=== PATIENT | female | born 1950 | race Caucasian/White ===

== ENCOUNTER 2018-01-17 21:36 | Inpatient (IN) | payer OTHER ==
[~2018-01-17] VITALS: Ht 160 cm; Wt 78.5 kg
[~2018-01-17 21:36] MED LIST: ARTHROTEC 501 TABLET PO; FIORICET,ESG1 TABLET PO; FISH OIL500 MG PO; FOLIC ACID1 MG PO; GABAPENTIN100 MG PO; LOPRESSOR50 MG PO; MECLIZINE HCL25 MG PO; METHOTREXA25 MG/1 M5 IV
[2018-01-17 22:29] LABS: HEMATOCRIT 37.4 % (36.0-46.0); HEMOGLOBIN 12.4 G/DL (11.9-15.5); MCH 31.7 PG (29.0-34.0); MCHC 33.2 G/DL (30.0-36.0); MCV 95.7 FL (83-99); PLATELET COUNT 417 K/uL (156-360); RBC DIS.WIDTH-CV 13.6 % (11.8-14.6); RBC DIS.WIDTH-SD 47.8 % (39-53); RED BLOOD COUNT 3.91 M/uL (3.80-5.20); WHITE BLOOD COUNT 12.4 K/uL (4.1-10.2)
[2018-01-17 22:47] LABS: ALBUMIN 3.9 g/dL (3.2-4.8)
[2018-01-17 22:48] LABS: CHLORIDE 111 mEq/L (99-109); POTASSIUM 4.7 mEq/L (3.7-5.4); SODIUM 142 mEq/L (136-147)
[2018-01-17 22:50] LABS: GLUCOSE 114 mg/dL (70-99)
[2018-01-17 22:52] LABS: TOTAL BILIRUBIN 1.2 mg/dL (0.0-1.0)
[2018-01-17 22:53] LABS: ALKALINE PHOSPHATASE 345 IU/L (3-129)
[2018-01-17 22:54] LABS: CREATININE 0.7 mg/dL (0.6-1.3); GFR ESTIMATE (CALCULATED) > 59 mL/min/
[2018-01-17 22:55] LABS: AST (GOT) 394 IU/L (2-34); UREA NITROGEN (BUN) 24 mg/dL (9-23)
[2018-01-17 22:56] LABS: ALT (GPT) 275 IU/L (3-49)
[2018-01-17 23:18] LABS: LIPASE 1004 U/L (1.0-51.0)
[2018-01-18 02:28] LABS: APPEARANCE SL.HAZY ((CLEAR)); BILIRUBIN NEGATIVE; BLOOD NEGATIVE; COLOR AMBER ((YELLOW)); GLUCOSE (STRIP) NEGATIVE; KETONES NEGATIVE; LEUKOCYTES MODERATE; NITRITE NEGATIVE; PROTEIN (STRIP) NEGATIVE; SPECIFIC GRAVITY 1.025 (1.000-1.030)
[2018-01-18 02:49] LABS: BACTERIA 1+ /HPF; EPITHELIAL CELLS RARE /HPF; MUCUS TRACE /LPF; RED BLOOD CELLS 0-5 /HPF (0-5); UCUL ADDED? YES; WHITE BLOOD CELLS TNTC /HPF (0-5)
[2018-01-18] MEDS ORDERED: LIPITOR10 MG PO (03:54)
[2018-01-18] MEDS ORDERED: BIOTIN2500 MCG PO (03:54)
[2018-01-18] MEDS ORDERED: FOLIC ACID1 MG PO ×2 (03:54)
[2018-01-18] MEDS ORDERED: TOPIRAMATE50 MG PO (03:54)
[2018-01-18] MEDS ORDERED: ERGOCALCIF50000 UNIT PO (03:55)
[2018-01-18] MEDS ORDERED: ASMANEX110 MCG IH (03:55)
[2018-01-18] MEDS ORDERED: ASMANEX TW200 MICRO1 IH (03:56)
[2018-01-18 04:48] VITALS: BP 158/70
[2018-01-18 07:00] VITALS: BP 136/62
[2018-01-18 07:00] LABS: HEMATOCRIT 37.2 % (36.0-46.0); HEMOGLOBIN 11.8 G/DL (11.9-15.5); MCH 30.4 PG (29.0-34.0); MCHC 31.7 G/DL (30.0-36.0); MCV 95.9 FL (83-99); PLATELET COUNT 402 K/uL (156-360); RBC DIS.WIDTH-CV 13.5 % (11.8-14.6); RBC DIS.WIDTH-SD 47.8 % (39-53); RED BLOOD COUNT 3.88 M/uL (3.80-5.20); WHITE BLOOD COUNT 11.7 K/uL (4.1-10.2)
[2018-01-18 07:21] LABS: ALBUMIN 3.5 G/DL (3.2-4.8); ALKALINE PHOSPHATASE 314 IU/L (3-129); ALT (GPT) 222 IU/L (3-49); AST (GOT) 250 IU/L (2-34); CHLORIDE 112 MEQ/L (99-109); CREATININE 0.6 MG/DL (0.6-1.3); GFR ESTIMATE (CALCULATED) > 59 mL/min/; GLUCOSE 120 mg/dL (70-99); POTASSIUM 3.9 MEQ/L (3.7-5.4); SODIUM 142 MEQ/L (136-147); TOTAL BILIRUBIN 1.9 MG/DL (0.0-1.0); TOTAL PROTEIN 5.6 G/DL (6.4-8.3); UREA NITROGEN (BUN) 17 mg/dL (9-23)
[2018-01-18 08:38] LABS: LIPASE 964 U/L (1.0-51.0)
[2018-01-18 11:00] VITALS: BP 109/54
[2018-01-18 15:00] VITALS: BP 122/60
[2018-01-18 20:20] VITALS: BP 165/55
[2018-01-19 01:00] VITALS: BP 159/63
[2018-01-19 04:30] VITALS: BP 145/78
[2018-01-19 06:59] VITALS: BP 113/67
[2018-01-19 07:16] LABS: BASOPHIL (%) 0.2 % (0-1); EOSINOPHIL (%) 0.3 % (0-5); HEMATOCRIT 35.8 % (36.0-46.0); HEMOGLOBIN 11.3 G/DL (11.9-15.5); IMMATURE GRANULOCYTE (%) 0.9 % (0.0-0.7); LYMPHOCYTE (%) 6.5 % (15-42); LYMPHOCYTE COUNT 0.9 K/uL (1.0-2.8); MCH 30.9 PG (29.0-34.0); MCHC 31.6 G/DL (30.0-36.0); MCV 97.8 FL (83-99); NEUTROPHIL (%) 85.1 % (45-76); PLATELET COUNT 409 K/uL (156-360); RBC DIS.WIDTH-CV 13.8 % (11.8-14.6); RBC DIS.WIDTH-SD 49.8 % (39-53); RED BLOOD COUNT 3.66 M/uL (3.80-5.20); WHITE BLOOD COUNT 14.1 K/uL (4.1-10.2)
[2018-01-19 07:49] LABS: ALBUMIN 3.3 G/DL (3.2-4.8); ALKALINE PHOSPHATASE 322 IU/L (3-129); ALT (GPT) 189 IU/L (3-49); CHLORIDE 110 MEQ/L (99-109); CREATININE 0.5 MG/DL (0.6-1.3); GFR ESTIMATE (CALCULATED) > 59 mL/min/; GLUCOSE 103 mg/dL (70-99); POTASSIUM 4.4 MEQ/L (3.7-5.4); SODIUM 141 MEQ/L (136-147); TOTAL PROTEIN 5.5 G/DL (6.4-8.3); UREA NITROGEN (BUN) 10 mg/dL (9-23)
[2018-01-19 07:50] LABS: AST (GOT) 110 IU/L (2-34); TOTAL BILIRUBIN 0.8 MG/DL (0.0-1.0)
[2018-01-19 16:35] VITALS: BP 132/60
[2018-01-19 20:25] VITALS: BP 91/55
[2018-01-19 23:53] VITALS: BP 110/54
[2018-01-20 06:59] LABS: HEMATOCRIT 31.2 % (36.0-46.0); MCH 31.3 PG (29.0-34.0); MCHC 32.1 G/DL (30.0-36.0); MCV 97.5 FL (83-99); PLATELET COUNT 378 K/uL (156-360); RBC DIS.WIDTH-CV 13.9 % (11.8-14.6); WHITE BLOOD COUNT 10.5 K/uL (4.1-10.2)
[2018-01-20 07:24] LABS: ALKALINE PHOSPHATASE 261 IU/L (3-129); ALT (GPT) 108 IU/L (3-49); CHLORIDE 110 MEQ/L (99-109); CREATININE 0.5 MG/DL (0.6-1.3); GFR ESTIMATE (CALCULATED) > 59 mL/min/; GLUCOSE 117 mg/dL (70-99); LIPASE 22 U/L (1.0-51.0); SODIUM 140 MEQ/L (136-147); TOTAL BILIRUBIN 0.7 MG/DL (0.0-1.0); TOTAL PROTEIN 5.4 G/DL (6.4-8.3); UREA NITROGEN (BUN) 10 mg/dL (9-23)
[2018-01-20 07:30] LABS: AST (GOT) 34 IU/L (2-34); POTASSIUM 3.1 MEQ/L (3.7-5.4)
[2018-01-20 07:43] VITALS: BP 108/55
[2018-01-20 11:00] VITALS: BP 109/59
[2018-01-20 15:41] VITALS: BP 120/74
[2018-01-20 23:42] VITALS: BP 141/68
[2018-01-21 06:21] LABS: HEMATOCRIT 31.9 % (36.0-46.0); MCH 30.4 PG (29.0-34.0); MCHC 31.3 G/DL (30.0-36.0); PLATELET COUNT 423 K/uL (156-360); RBC DIS.WIDTH-SD 49.5 % (39-53); RED BLOOD COUNT 3.29 M/uL (3.80-5.20); WHITE BLOOD COUNT 7.3 K/uL (4.1-10.2)
[2018-01-21 06:53] LABS: ALBUMIN 2.8 G/DL (3.2-4.8); ALKALINE PHOSPHATASE 226 IU/L (3-129); ALT (GPT) 83 IU/L (3-49); AST (GOT) 23 IU/L (2-34); CHLORIDE 119 MEQ/L (99-109); CREATININE 0.5 MG/DL (0.6-1.3); GFR ESTIMATE (CALCULATED) > 59 mL/min/; GLUCOSE 99 mg/dL (70-99); SODIUM 142 MEQ/L (136-147); TOTAL PROTEIN 5.3 G/DL (6.4-8.3); UREA NITROGEN (BUN) 7 mg/dL (9-23)
[2018-01-21 06:56] LABS: POTASSIUM 4.5 MEQ/L (3.7-5.4); TOTAL BILIRUBIN 0.5 MG/DL (0.0-1.0)
[2018-01-21 07:45] VITALS: BP 111/58
[2018-01-21 17:33] VITALS: BP 136/65
[2018-01-21 17:40] VITALS: BP 136/65
[2018-01-21 19:34] VITALS: BP 160/73
[2018-01-21 20:19] LABS: BASOPHIL (%) 0.3 % (0-1); BASOPHIL COUNT 0.1 K/uL (0-0.1); EOSINOPHIL (%) 0 % (0-5); HEMATOCRIT 33.6 % (36.0-46.0); HEMOGLOBIN 10.6 G/DL (11.9-15.5); LYMPHOCYTE (%) 2.5 % (15-42); LYMPHOCYTE COUNT 0.5 K/uL (1.0-2.8); MCHC 31.5 G/DL (30.0-36.0); MCV 98.2 FL (83-99); MONOCYTE (%) 4.5 % (3-12); MONOCYTE COUNT 0.8 K/uL (0-0.8); NEUTROPHIL (%) 91.7 % (45-76); NEUTROPHIL COUNT 16.8 K/uL (1.8-6.4); PLATELET COUNT 512 K/uL (156-360); RBC DIS.WIDTH-CV 14.2 % (11.8-14.6); RED BLOOD COUNT 3.42 M/uL (3.80-5.20); WHITE BLOOD COUNT 18.3 K/uL (4.1-10.2)
[2018-01-22] VITALS (10 sets, daily range): BP systolic 100–167; BP diastolic 58–92
[2018-01-22 06:39] LABS: HEMOGLOBIN 10.5 G/DL (11.9-15.5); MCH 30.9 PG (29.0-34.0); MCHC 31.8 G/DL (30.0-36.0); MCV 97.1 FL (83-99); PLATELET COUNT 520 K/uL (156-360); RBC DIS.WIDTH-CV 14.2 % (11.8-14.6); RBC DIS.WIDTH-SD 50.7 % (39-53); WHITE BLOOD COUNT 14.5 K/uL (4.1-10.2)
[2018-01-22 07:06] LABS: ALBUMIN 2.9 G/DL (3.2-4.8); ALKALINE PHOSPHATASE 194 IU/L (3-129); ALT (GPT) 76 IU/L (3-49); CHLORIDE 116 MEQ/L (99-109); CREATININE 0.6 MG/DL (0.6-1.3); GFR ESTIMATE (CALCULATED) > 59 mL/min/; GLUCOSE 128 mg/dL (70-99); SODIUM 142 MEQ/L (136-147); TOTAL BILIRUBIN 0.5 MG/DL (0.0-1.0); TOTAL PROTEIN 5.3 G/DL (6.4-8.3); UREA NITROGEN (BUN) 9 mg/dL (9-23)
[2018-01-22 07:08] LABS: AST (GOT) 48 IU/L (2-34)
[2018-01-23] VITALS (8 sets, daily range): BP systolic 90–121; BP diastolic 52–68
[2018-01-23 07:27] LABS: HEMATOCRIT 29.8 % (36.0-46.0); HEMOGLOBIN 9.3 G/DL (11.9-15.5); MCH 30.3 PG (29.0-34.0); MCHC 31.2 G/DL (30.0-36.0); MCV 97.1 FL (83-99); PLATELET COUNT 471 K/uL (156-360); RBC DIS.WIDTH-CV 14.5 % (11.8-14.6); RBC DIS.WIDTH-SD 50.4 % (39-53); RED BLOOD COUNT 3.07 M/uL (3.80-5.20); WHITE BLOOD COUNT 13.1 K/uL (4.1-10.2)
[2018-01-23 07:57] LABS: ALBUMIN 2.6 G/DL (3.2-4.8); ALKALINE PHOSPHATASE 165 IU/L (3-129); ALT (GPT) 49 IU/L (3-49); CHLORIDE 115 MEQ/L (99-109); CREATININE 0.7 MG/DL (0.6-1.3); GFR ESTIMATE (CALCULATED) > 59 mL/min/; GLUCOSE 116 mg/dL (70-99); POTASSIUM 4.4 MEQ/L (3.7-5.4); SODIUM 144 MEQ/L (136-147); TOTAL BILIRUBIN 0.4 MG/DL (0.0-1.0); UREA NITROGEN (BUN) 12 mg/dL (9-23)
[2018-01-23 07:59] LABS: AST (GOT) 21 IU/L (2-34); TOTAL PROTEIN 4.5 G/DL (6.4-8.3)
[2018-01-24 00:15] VITALS: BP 100/55
[2018-01-24 00:33] LABS: INTER. NORMALIZED RATIO 1.2
[2018-01-24 00:36] LABS: PTT 40.1 SEC (25-37)
[2018-01-24 03:59] VITALS: BP 94/58
[2018-01-24 06:57] VITALS: BP 102/61
[2018-01-24 07:10] LABS: HEMATOCRIT 29.3 % (36.0-46.0); HEMOGLOBIN 9.2 G/DL (11.9-15.5); MCH 30.4 PG (29.0-34.0); MCHC 31.4 G/DL (30.0-36.0); MCV 96.7 FL (83-99); PLATELET COUNT 488 K/uL (156-360); RBC DIS.WIDTH-CV 14.6 % (11.8-14.6); RBC DIS.WIDTH-SD 51.1 % (39-53); RED BLOOD COUNT 3.03 M/uL (3.80-5.20); WHITE BLOOD COUNT 11.6 K/uL (4.1-10.2)
[2018-01-24 07:39] LABS: CHLORIDE 116 MEQ/L (99-109); CREATININE 0.6 MG/DL (0.6-1.3); GFR ESTIMATE (CALCULATED) > 59 mL/min/; GLUCOSE 100 mg/dL (70-99); MAGNESIUM 1.8 mg/dl (1.3-2.7); POTASSIUM 4.1 MEQ/L (3.7-5.4); SODIUM 145 MEQ/L (136-147); UREA NITROGEN (BUN) 12 mg/dL (9-23)
[2018-01-24 12:32] VITALS: BP 121/78
[2018-01-24 15:04] VITALS: BP 142/64
[2018-01-24 20:41] VITALS: BP 121/62
[2018-01-25] VITALS (9 sets, daily range): BP systolic 105–151; BP diastolic 53–73
[2018-01-25 06:10] LABS: HEMATOCRIT 29.6 % (36.0-46.0); HEMOGLOBIN 9.3 G/DL (11.9-15.5); MCH 30.5 PG (29.0-34.0); MCHC 31.4 G/DL (30.0-36.0); NRBC (%) 0.2 /100 WBC (0-0); PLATELET COUNT 555 K/uL (156-360); RBC DIS.WIDTH-CV 14.5 % (11.8-14.6); RBC DIS.WIDTH-SD 50.8 % (39-53); RED BLOOD COUNT 3.05 M/uL (3.80-5.20); WHITE BLOOD COUNT 11.6 K/uL (4.1-10.2)
[2018-01-26 04:01] VITALS: BP 119/63
[2018-01-26 06:33] LABS: HEMATOCRIT 29.8 % (36.0-46.0); HEMOGLOBIN 9.4 G/DL (11.9-15.5); MCH 30.5 PG (29.0-34.0); MCHC 31.5 G/DL (30.0-36.0); MCV 96.8 FL (83-99); NRBC (%) 0.2 /100 WBC (0-0); PLATELET COUNT 588 K/uL (156-360); RBC DIS.WIDTH-CV 14.5 % (11.8-14.6); RBC DIS.WIDTH-SD 51.1 % (39-53); RED BLOOD COUNT 3.08 M/uL (3.80-5.20); WHITE BLOOD COUNT 11.3 K/uL (4.1-10.2)
[2018-01-26 07:01] VITALS: BP 113/59
[2018-01-26 07:01] LABS: CHLORIDE 114 MEQ/L (99-109); CREATININE 0.8 MG/DL (0.6-1.3); GFR ESTIMATE (CALCULATED) > 59 mL/min/; GLUCOSE 110 mg/dL (70-99); POTASSIUM 4.6 MEQ/L (3.7-5.4); SODIUM 146 MEQ/L (136-147); UREA NITROGEN (BUN) 16 mg/dL (9-23)
[2018-01-26 07:05] LABS: MAGNESIUM 2.8 mg/dl (1.3-2.7)
[2018-01-26 09:54] VITALS: BP 181/85
[2018-01-26 11:20] VITALS: BP 126/56
[2018-01-26 12:19] LABS: INTER. NORMALIZED RATIO 1.1
[2018-01-26 15:34] VITALS: BP 157/67
[2018-01-26 20:23] VITALS: BP 111/78
[2018-01-27 00:03] VITALS: BP 139/66; BP 146/88
[2018-01-27 04:11] VITALS: BP 136/68
[2018-01-27 05:58] LABS: HEMOGLOBIN 9.4 G/DL (11.9-15.5); MCHC 31.3 G/DL (30.0-36.0); MCV 95.8 FL (83-99); NRBC (%) 0.3 /100 WBC (0-0); PLATELET COUNT 637 K/uL (156-360); RBC DIS.WIDTH-CV 14.5 % (11.8-14.6); RBC DIS.WIDTH-SD 50.3 % (39-53); RED BLOOD COUNT 3.13 M/uL (3.80-5.20); WHITE BLOOD COUNT 10.5 K/uL (4.1-10.2)
[2018-01-27 06:05] LABS: INTER. NORMALIZED RATIO 1.2
[2018-01-27 06:07] LABS: PTT 60.6 SEC (25-37)
[2018-01-27 06:55] VITALS: BP 155/69
[2018-01-27 12:02] VITALS: BP 163/79
[2018-01-27] MEDS ORDERED: ENDOCET 5-3251 EACH PO (13:58)
[2018-01-27] MEDS ORDERED: DOCUSATE SODIU100 MG PO (13:58)
[2018-01-27] MEDS ORDERED: COUMADIN5 MG PO (13:58)
[2018-01-27] MEDS ORDERED: FUROSEMIDE20 MG PO (14:23)
== END 2018-01-27 15:40 | DRG 418 ==
LOC: DELPENDDIS → EME 21:36 → EDOF 01-18 02:51 → 2EAST 01-18 02:51 → ENRESERV 01-18 02:52 → 2EAST 01-18 04:19 → ENPENDDIS 01-22 08:43 → 2EAST 01-27 15:40
PROVIDERS: Family Medicine; Internal Medicine; Thoracic Surgery (Cardiothoracic Vascular Surgery)
PROC: 0FJB8ZZ Inspection of Hepatobiliary Duct, Via Natural or Artificial Opening Endoscopic (ICD-10-PCS; 2018-01-19)
PROC: 0FT44ZZ Resection of Gallbladder, Percutaneous Endoscopic Approach (ICD-10-PCS; principal; 2018-01-21)
DX: K85.10 Biliary acute pancreatitis without necrosis or infection (principal); K80.62 Calculus of gallbladder and bile duct with acute cholecystitis without obstruction; N17.9 Acute kidney failure, unspecified; I48.0 Paroxysmal atrial fibrillation; R55 Syncope and collapse; T40.2X5A Adverse effect of other opioids, initial encounter; D64.9 Anemia, unspecified; E87.6 Hypokalemia; I10 Essential (primary) hypertension; J45.909 Unspecified asthma, uncomplicated; E78.5 Hyperlipidemia, unspecified; M19.90 Unspecified osteoarthritis, unspecified site; M06.9 Rheumatoid arthritis, unspecified; E78.00 Pure hypercholesterolemia, unspecified; G43.909 Migraine, unspecified, not intractable, without status migrainosus; E66.9 Obesity, unspecified; Z96.691 Finger-joint replacement of right hand; Z87.891 Personal history of nicotine dependence; Q45.3 Other congenital malformations of pancreas and pancreatic duct; Z68.30 Body mass index [BMI] 30.0-30.9, adult
CPT/HCPCS: 71045; 74177; 74183; 74328; 76705; 80048; 80053; 81003; 83690; 83735; 85025; 85027; 85610; 85730; 87070; 87075; 87081; 87086; 87205; 88304; 93005; 93306; 94640; 94640 76; 94760; 94799; 97530 GO; 99281; 99285; C1769; J0330; J0690; J0696; J1100; J1170; J1644; J1885; J2060; J2270; J2405; J2710; J3480; J7030; J7120; S0020; S0028